=== PATIENT | male | born 1975 | race Caucasian/White ===

== ENCOUNTER 2021-01-29 13:39 | Emergency (ER) | payer MEDICARE ==
[~2021-01-29 13:39] MED LIST: DAKIN'S 1/4 ST480 ML MC; PROZAC20 MG PO
== END 2021-01-29 15:21 | disposition home or self-care (01) ==
LOC: FER 13:39
DX: T83.028A Displacement of other urinary catheter, initial encounter (principal)

== ENCOUNTER 2021-03-31 01:15 | Emergency (ER) | payer MEDICARE ==
[2021-03-31 02:06] LABS: BASOPHIL 0.7 % (0-2); EOSINOPHIL 6.1 % (0-5); HCT 32.3 % (42.0-52.0); HGB 9.8 g/dl (13.2-18.0); LYMPHOCYTE 33.3 % (15-48); MCH 27.4 pg (25.0-31.0); MCHC 30.3 g/dL (32.0-36.0); MCV 90.2 fL (78.0-100.0); MONOCYTE 7.6 % (0-12); MPV 9.9 fL (6.0-9.5); NEUTROPHIL 51.7 % (41-80); NRBC 0; PLT 347 K/uL (150-400); RBC 3.58 M/uL (4.70-6.00); RDW 17.1 % (11.5-14.0); WBC 8.2 K/uL (4.0-10.5)
[2021-03-31 02:36] LABS: ALBUMIN 2.6 g/dL (3.4-5.0); BILIRUBIN - TOTAL 0.2 mg/dL (0.2-1.0); BUN/CREAT RATIO (CALC) 19.4 RATIO; CREATININE 1.24 mg/dL (0.67-1.17); POTASSIUM 3.9 mmol/L (3.5-5.1); TOTAL PROTEIN 6.6 g/dL (6.4-8.2)
== END 2021-03-31 11:54 | disposition other institution (70) ==
LOC: FER 01:15
PROVIDERS: Internal Medicine
DX: S31.829A Unspecified open wound of left buttock, initial encounter (principal); M86.9 Osteomyelitis, unspecified
CPT/HCPCS: 36415; 80053; 85025; J2405; J2543; J3370; J7030; J7050